=== PATIENT | male | born 1985 | race Caucasian/White ===

== ENCOUNTER 2016-09-07 22:46 | Emergency (ER) | payer MEDICAID ==
[2016-09-07 23:00] VITALS: BP 124/93; PULSE 88; RESP 16; TEMP 98.4; O2SAT 98
[2016-09-07] MEDS ORDERED: Oxycodone/Acetaminophen 5/325 mg Tab PO STA (23:46)
--- NOTE | 2016-09-07 23:48 | C.PDOC ---
History Of Present Illness 31 yo male come in for evaluation of Left lower toothache developed few hours ago " after broke my tooth while eating". Pt denies bleeding, drooling, trismus , facial swelling, CP, SOB, dyspnea, or any other active complaints. Ambulate to ED, appears in pain. Time Seen by Provider: 09/07/16 23:06 Chief Complaint (Nursing): Dental Pain History Per: Patient Past Medical History Reviewed: Historical Data, Nursing Documentation, Vital Signs Vital Signs: Last Vital Signs Temp 98.4 F 09/07/16 22:56 Pulse 88 09/07/16 22:56 Resp 16 09/07/16 22:56 BP 124/93 H 09/07/16 22:56 Pulse Ox 98 09/07/16 23:54 - Medical History PMH: Anxiety, Bipolar Disorder, Depression Surgical History: Appendectomy Family History: States: No Known Family Hx - Social History Hx Tobacco Use: Yes Hx Alcohol Use: Yes Hx Substance Use: No - Immunization History Hx Tetanus Toxoid Vaccination: No Hx Influenza Vaccination: No Hx Pneumococcal Vaccination: No Review Of Systems Except As Marked, All Systems Reviewed And Found Negative. Constitutional: Negative for: Fever, Chills ENT: Positive for: Mouth Pain. Negative for: Ear Discharge, Nose Discharge, Mouth Swelling, Throat Pain, Throat Swelling Cardiovascular: Negative for: Chest Pain, Palpitations, Edema, Light Headedness Respiratory: Negative for: Cough, Shortness of Breath, Wheezing Skin: Negative for: Rash Neurological: Negative for: Weakness, Headache, Dizziness Physical Exam - Physical Exam Appears: Well, Non-toxic, No Acute Distress Skin: Normal Color, Warm, No Rash Eye(s): bilateral: PERRL Nose: Normal Oral Mucosa: Moist, No Drooling, No Trismus Tongue: Normal Appearing Teeth: Caries (Left lower canine fractured crown, gingival edema or erythema, no evidence of tooth abscess. no facial edema.) Gingiva: Normal Appearing, No Erythema, No Swelling, No Abscess Throat: Normal, No Erythema, No Exudate, No Drooling, Other (Uvula midline, no edema.) Neck: Normal ROM, Trachea Midline, Supple Cardiovascular: Rhythm Regular Respiratory: No Stridor, No Wheezing Extremity: Normal ROM, No Deformity Neurological/Psych: Oriented x3, Normal Speech ED Course And Treatment O2 Sat by Pulse Oximetry: 98 Pulse Ox Interpretation: Normal Progress Note: On re-eavl, pt is afebrile, hemodynamicaly stable. Non-toxic. Tolerate PO well in ED. ENT: exam c/w Left lower toothache, no evidence of tooth abscess. uvula midline, no edema, no trismus or drooling. Lungs: CTA B/L, BS equal B/L. Pt advised and ref. to f/u with Dentist in 2 days for re-eval. Disposition Counseled Patient/Family Regarding: Diagnosis, Need For Followup, Rx Given - Disposition Referrals: [facility] [Provider Group] [facility] [Provider Group] Disposition: HOME/ ROUTINE Disposition Time: 23:46 Condition: STABLE Additional Instructions: Warm salty water tooth soaks Take pain medication as prescribed as need for pain Follow up with Dentist ni 2-3 days for re-evaluation. Return to ED if any worsening or new changes. Prescriptions: traMADol [Ultram] 50 mg PO TID #7 tab Instructions: Toothache (ED) - Clinical Impression Clinical Impression: Toothache
[2016-09-07] MEDS ORDERED: Oxycodone/Acetaminophen 5/325 mg Tab ONE (23:49)
== END 2016-09-08 00:03 | disposition home or self-care (01) ==
LOC: C.ER 22:46
DX: K08.89 Other specified disorders of teeth and supporting structures (principal)

== ENCOUNTER 2018-01-16 13:10 | Emergency (ER) | payer SELFPAY ==
[2018-01-16 13:10] VITALS: BMI 27.8
[2018-01-16 13:46] VITALS: BP 117/72; PULSE 69; RESP 18; TEMP 98.5; O2SAT 98
--- NOTE | 2018-01-16 14:02 | C.PDOC ---
History Of Present Illness 32-year-old male presents to the ED requesting evaluation of a bump near his chest, noticed today. When asked to point to the affected area, patient points to sternum. Otherwise he denies any chest pain, SOB, abdominal pain, or other complaints. Time Seen by Provider: 01/16/18 13:47 Chief Complaint (Nursing): Abnormal Skin Integrity History Per: Patient History/Exam Limitations: no limitations Onset/Duration Of Symptoms: Days Current Symptoms Are (Timing): Still Present Past Medical History Reviewed: Historical Data, Nursing Documentation, Vital Signs Vital Signs: Last Vital Signs Temp 98.5 F 01/16/18 13:40 Pulse 69 01/16/18 13:40 Resp 18 01/16/18 13:40 BP 117/72 01/16/18 13:40 Pulse Ox 98 01/16/18 14:13 - Medical History PMH: Anxiety, Bipolar Disorder, Depression Surgical History: Appendectomy Family History: States: Unknown Family Hx - Social History Hx Tobacco Use: Yes Hx Alcohol Use: No Hx Substance Use: No - Immunization History Hx Tetanus Toxoid Vaccination: No Hx Influenza Vaccination: No Hx Pneumococcal Vaccination: No Review Of Systems Constitutional: Negative for: Fever Eyes: Negative for: Vision Change Cardiovascular: Negative for: Chest Pain Respiratory: Negative for: Shortness of Breath Gastrointestinal: Negative for: Vomiting Skin: Positive for: Other (palpable "bump" near lower central chest) Neurological: Negative for: Weakness, Numbness Physical Exam - Physical Exam Appears: Well, Non-toxic, No Acute Distress Skin: Warm, Dry, No Rash Head: Atraumatic, Normacephalic Eye(s): bilateral: Normal Inspection Oral Mucosa: Moist Neck: Normal ROM Chest: Symmetrical (with no swelling), No Tenderness (to the sternum or ribs), No Ecchymosis Cardiovascular: Rhythm Regular, No Murmur Respiratory: Normal Breath Sounds, No Rales, No Rhonchi, No Wheezing Extremity: Bilateral: Atraumatic, Normal Color And Temperature, Normal ROM Neurological/Psych: Oriented x3, Normal Speech ED Course And Treatment O2 Sat by Pulse Oximetry: 98 (RA) Pulse Ox Interpretation: Normal Medical Decision Making Medical Decision Making: Impression: Normal exam Plan: Explained to patient that area of concern is his xiphoid process, which is part of the normal human anatomy. Reassured patient that exam findings are normal, and there is no further need for ED intervention. Patient is stable for discharge home. Disposition Counseled Patient/Family Regarding: Diagnosis, Need For Followup - Disposition Disposition: HOME/ ROUTINE Disposition Time: 13:59 Condition: STABLE Additional Instructions: Your chest wall anatomy was normal Forms: General Discharge Instructions - POA Present On Arrival: None - Clinical Impression Clinical Impression: Normal exam - PA / UNDERGRADUATE INTERNSHIP / Resident Statement MD/DO has reviewed & agrees with the documentation as recorded. - Scribe Statement The provider has reviewed the documentation as recorded by the Scribe (Georgette Ley) All medical record entries made by the Scribe were at my direction and personally dictated by me. I have reviewed the chart and agree that the record accurately reflects my personal performance of the history, physical exam, medical decision making, and the department course for this patient. I have also personally directed, reviewed, and agree with the discharge instructions and disposition.
== END 2018-01-16 14:22 | disposition home or self-care (01) ==
LOC: C.ER 13:10
DX: Z00.00 Encounter for general adult medical examination without abnormal findings (principal); Z72.0 Tobacco use

== ENCOUNTER 2018-06-07 18:02 | Emergency (ER) | payer SELFPAY ==
[2018-06-07 18:03] VITALS: BMI 27.8
[2018-06-07 18:37] VITALS: BP 106/46; PULSE 92; TEMP 99.4; O2SAT 98
--- NOTE | 2018-06-07 19:49 | C.PDOC ---
History Of Present Illness 33 year old male presents to the emergency department with complaints of itching to the bilateral toes for the last five days. Patient reports pain to the left foot in the 5th toe area, worse with wearing shoes and walking. Patient states that he has been using an antifungal cream with minimal relief. Patient denies trauma, weakness, and numbness. Time Seen by Provider: 06/07/18 19:17 Chief Complaint (Nursing): Lower Extremity Problem/Injury History Per: Patient History/Exam Limitations: no limitations Onset/Duration Of Symptoms: Days (5) Current Symptoms Are (Timing): Still Present Past Medical History Reviewed: Historical Data, Nursing Documentation, Vital Signs Vital Signs: Last Vital Signs Temp 99.4 F 06/07/18 18:29 Pulse 92 H 06/07/18 18:29 Resp 18 06/07/18 18:29 BP 106/46 L 06/07/18 18:29 Pulse Ox 98 06/07/18 18:29 - Medical History PMH: Anxiety, Bipolar Disorder, Depression Surgical History: Appendectomy Family History: States: Unknown Family Hx - Social History Hx Tobacco Use: Yes Hx Alcohol Use: No Hx Substance Use: No - Immunization History Hx Tetanus Toxoid Vaccination: No Hx Influenza Vaccination: No Hx Pneumococcal Vaccination: No Review Of Systems Except As Marked, All Systems Reviewed And Found Negative. Constitutional: Negative for: Fever, Chills Gastrointestinal: Negative for: Nausea, Vomiting, Diarrhea Musculoskeletal: Positive for: Foot Pain Physical Exam - Physical Exam Appears: Non-toxic, No Acute Distress Skin: Warm, Dry, Other (No erythema. (+) minimal maceration between the 3rd, 4th, and 5th toe space of left foot consistent with fungal rash. ) Head: Atraumatic, Normacephalic Neck: Normal, Supple Chest: Symmetrical, No Tenderness Extremity: Normal ROM, Capillary Refill (< 2 seconds), Deformity (callous/bony deformity to the left 5th toe MCP with bony protrusion.), Other (right foot normal appearing) Extremity: Bilateral: Atraumatic Pulses: Left Dorsalis Pedis: Normal, Right Dorsalis Pedis: Normal Neurological/Psych: Oriented x3, Normal Motor, Normal Sensation Gait: Steady ED Course And Treatment O2 Sat by Pulse Oximetry: 98 (RA) Pulse Ox Interpretation: Normal Progress Note: Patient instructed to follow-up with Podiatry. Disposition Counseled Patient/Family Regarding: Diagnosis, Need For Followup, Rx Given - Disposition Referrals: [facility] [Outside] Podiatry Clinic [Outside] Disposition: HOME/ ROUTINE Disposition Time: 19:47 Condition: STABLE Additional Instructions: Please follow up with Podiatry Wear comfortable wide front shoes Elevate leg Continue antifungal powder Take tylenol or advil for pain Return if any concerns Instructions: Corns and Calluses, Athlete's Foot (DC) Forms: [employer] (Belgian) - Clinical Impression Clinical Impression: Callus of foot, Tinea pedis of left foot - PA / HIDE OR SKIN BUFFER / Resident Statement MD/DO has reviewed & agrees with the documentation as recorded. - Scribe Statement The provider has reviewed the documentation as recorded by the Scribe (Mat Marshall) All medical record entries made by the Scribe were at my direction and personally dictated by me. I have reviewed the chart and agree that the record accurately reflects my personal performance of the history, physical exam, medical decision making, and the department course for this patient. I have also personally directed, reviewed, and agree with the discharge instructions and disposition.
[2018-06-07 20:07] VITALS: RESP 20
== END 2018-06-07 20:06 | disposition home or self-care (01) ==
LOC: C.ER 18:02
DX: B35.3 Tinea pedis (principal); L84 Corns and callosities; Z72.0 Tobacco use; F31.9 Bipolar disorder, unspecified

== ENCOUNTER 2018-06-17 11:56 | Emergency (ER) | payer OTHER ==
[2018-06-17 11:59] VITALS: BMI 25.0
[2018-06-17 12:01] VITALS: O2SAT 99
--- NOTE | 2018-06-17 13:00 | C.PDOC ---
History Of Present Illness 33 year old male, whose past surgical history includes appendectomy, presents to the ED for evaluation of right elbow, right thumb and lower back pain after he sustained a fall yesterday. Patient states he was walking down steps when he fell forward, down around ten steps. He denies head injury, loss of consciousness, urinary/bowel incontinence, extremity numbness/weakness. Time Seen by Provider: 06/17/18 12:03 Chief Complaint (Nursing): Upper Extremity Problem/Injury History Per: Patient History/Exam Limitations: no limitations Onset/Duration Of Symptoms: Hrs Current Symptoms Are (Timing): Still Present Quality: "Pain" Additional History Per: Patient Past Medical History Reviewed: Historical Data, Nursing Documentation, Vital Signs Vital Signs: Last Vital Signs Temp 98.5 F 06/17/18 11:59 Pulse 60 06/17/18 11:59 Resp 18 06/17/18 11:59 BP 112/64 06/17/18 11:59 Pulse Ox 99 06/17/18 11:59 - Medical History PMH: Anxiety, Bipolar Disorder, Depression Surgical History: Appendectomy Family History: States: Unknown Family Hx - Social History Hx Tobacco Use: Yes Hx Alcohol Use: No Hx Substance Use: No - Immunization History Hx Tetanus Toxoid Vaccination: No Hx Influenza Vaccination: No Hx Pneumococcal Vaccination: No Review Of Systems Genitourinary: Negative for: Incontinence Musculoskeletal: Positive for: Back Pain (lower), Other (right elbow and right thumb pain ) Neurological: Negative for: Weakness, Numbness, Other (head injury, LOC ) Physical Exam - Physical Exam Appears: Non-toxic, No Acute Distress Skin: Normal Color, Warm, Dry Head: Atraumatic, Normacephalic Eye(s): bilateral: Normal Inspection Oral Mucosa: Moist Neck: Normal ROM, No Midline Cervical Tenderness, Supple Chest: Symmetrical, No Deformity, No Tenderness Cardiovascular: Rhythm Regular, No Murmur Respiratory: Normal Breath Sounds, No Rales, No Rhonchi, No Wheezing Gastrointestinal/Abdominal: Soft, No Tenderness, No Guarding, No Rebound Back: No Vertebral Tenderness, No Paraspinal Tenderness Extremity: Normal ROM (right elbow and right thumb ), Tenderness (to left buttock and medial aspect of right elbow, and right thumb on palpation ), Capillary Refill (less than 2 seconds ), No Swelling, No Other (erythema ) Pulses: Left Radial: Normal, Right Radial: Normal Neurological/Psych: Oriented x3, Normal Speech, Normal Cognition, Normal Motor, Normal Sensation Gait: Steady ED Course And Treatment O2 Sat by Pulse Oximetry: 99 (on RA) Pulse Ox Interpretation: Normal Medical Decision Making Medical Decision Making: Impression: rule out elbow and thumb fracture Plan: * right elbow XR * right thumb XR * LS Spine XR * Motrin PO * reassess and disposition Progress: Right elbow XR, Right thumb XR, LS Spine XR ordered and reviewed. Motrin PO given. Disposition - Disposition Referrals: Patricia Do MD [Staff Provider] - Disposition: HOME/ ROUTINE Disposition Time: 13:55 Condition: GOOD Additional Instructions: Please call for an appointment as soon as possible. Take motrin for pain as directed. Prescriptions: Ibuprofen [Motrin] 600 mg PO Q6 #20 tab Instructions: Finger Fracture, Contusion (DC) Forms: [employer] (Frisian), Work Excuse - Clinical Impression Clinical Impression: Finger fracture, right, Contusion - Scribe Statement The provider has reviewed the documentation as recorded by the Scribe (Trudy Almeida) Provider Attestation: All medical record entries made by the Scribe were at my direction and personally dictated by me. I have reviewed the chart and agree that the record accurately reflects my personal performance of the history, physical exam, medical decision making, and the department course for this patient. I have also personally directed, reviewed, and agree with the discharge instructions and disposition.
--- NOTE | 2018-06-17 13:14 | RAD ---
Date of service: 06/17/2018 PROCEDURE: Radiographs of the Lumbar Spine. HISTORY: s/p fall COMPARISON: None available. FINDINGS: BONES: Osseous demineralization. Alignment appears satisfactory. No listhesis. No acute displaced fracture identified. DISC SPACES: Unremarkable. OTHER FINDINGS: Surgical clips project over the right pelvis. IMPRESSION: No acute displaced fracture or subluxation identified.
--- NOTE | 2018-06-17 13:16 | RAD ---
PROCEDURE: Radiographs of the right elbow. HISTORY: s/p fall r/o Fx COMPARISON: None available. FINDINGS: BONES: No acute displaced fracture. JOINTS: No dislocation. SOFT TISSUES: Unremarkable. No evidence of radiopaque foreign body. JOINT EFFUSION: No significant joint effusion. OTHER FINDINGS: None IMPRESSION: No acute displaced fracture, dislocation, or significant joint effusion identified. If symptoms persist, or if there is continued clinical concern, x-ray follow-up in 7-10 days should be considered.
--- NOTE | 2018-06-17 13:19 | RAD ---
Date of service: 06/17/2018 PROCEDURE: Right Thumb radiographs. HISTORY: s/p fall r/o Fx COMPARISON: None available. TECHNIQUE: AP radiograph of the right hand, as well as spot oblique and lateral images of thumb were obtained. FINDINGS: RIGHT THUMB: Faint linear lucency at the 1st digit distal metacarpal seen on a single view (series 2, image 1); nondisplaced fracture not excluded. Chronic fracture deformity of the 5th metacarpal. Remainder of the right hand (as seen on the AP view) grossly unremarkable. JOINTS: No dislocation. SOFT TISSUES: Soft tissue swelling. No evidence of radiopaque foreign body OTHER FINDINGS: None. IMPRESSION: Soft tissue swelling. Faint linear lucency at the 1st digit distal metacarpal seen on a single view; nondisplaced fracture not excluded. Correlate clinically. Chronic fracture deformity of the 5th metacarpal.
[2018-06-17 13:56] VITALS: BP 139/84; PULSE 84; RESP 20; TEMP 97.9
== END 2018-06-17 13:56 | disposition home or self-care (01) ==
LOC: C.ER 11:56
DX: S62.201A Unspecified fracture of first metacarpal bone, right hand, initial encounter for closed fracture (principal); T14.8XXA Other injury of unspecified body region, initial encounter; W10.9XXA Fall (on) (from) unspecified stairs and steps, initial encounter

== ENCOUNTER 2018-06-30 14:16 | Emergency (ER) | payer SELFPAY ==
[2018-06-30 14:16] VITALS: BMI 25.0
[2018-06-30] MEDS ORDERED: Sodium Chloride 0.9% 1,000 ML IV ONE (15:27)
[2018-06-30 15:49] LABS: URINE BILIRUBIN NEGATIVE (NEGATIVE); URINE BLOOD NEGATIVE (NEGATIVE); URINE CLARITY Clear (Clear); URINE COLOR Yellow (YELLOW); URINE GLUCOSE (UA) NORMAL (Normal); URINE LEUKOCYTE ESTERASE NEG Leu/uL (Negative); URINE PROTEIN NEGATIVE (NEGATIVE); URINE UROBILINOGEN NORMAL mg/dL (0.2-1.0)
--- NOTE | 2018-06-30 15:55 | C.PDOC ---
History Of Present Illness Patient is a 33 year old male w/PMhx of kidney stone, who presents to the ED for evaluation of diffuse suprapubic discomfort for the past 2/3 days with intermittent right lower back pain and urinary frequency. Patient denies high fever, chills, abdominal pain, N/V, hematuria, penile discharge, testicular swelling or pain. Ambulatory, not in any apparent distress. Time Seen by Provider: 06/30/18 14:40 Chief Complaint (Nursing): Male Genitourinary History Per: Patient History/Exam Limitations: no limitations Onset/Duration Of Symptoms: Days Current Symptoms Are (Timing): Still Present Quality Of Discomfort: Other (suprapubic discomfort ) Associated Symptoms: Back Pain (intermittent right lower back ), Urinary Symptoms (frequency ). denies: Fever, Chills Recent travel outside of the [place]: No Additional History Per: Patient Past Medical History Reviewed: Historical Data, Nursing Documentation, Vital Signs Vital Signs: Last Vital Signs Temp 98.1 F 06/30/18 14:31 Pulse 70 06/30/18 14:31 Resp 18 06/30/18 14:31 BP 130/62 06/30/18 14:31 Pulse Ox 98 06/30/18 14:31 - Medical History PMH: Anxiety, Bipolar Disorder, Depression, Kidney Stones Surgical History: Appendectomy (22 yrs old) Family History: States: Unknown Family Hx - Social History Hx Tobacco Use: Yes Hx Alcohol Use: No Hx Substance Use: No - Immunization History Hx Tetanus Toxoid Vaccination: No Hx Influenza Vaccination: No Hx Pneumococcal Vaccination: No Review Of Systems Except As Marked, All Systems Reviewed And Found Negative. Constitutional: Negative for: Fever, Chills Gastrointestinal: Positive for: Other (suprapubic discomfort ). Negative for: Abdominal Pain Genitourinary: Positive for: Frequency. Negative for: Hematuria Musculoskeletal: Positive for: Back Pain (intermittent right lower back pain ) Physical Exam - Physical Exam Appears: Well, Non-toxic, No Acute Distress Skin: Normal Color, Warm, No Rash, No Ecchymosis Neck: Supple Cardiovascular: Rhythm Regular, No Murmur Respiratory: No Accessory Muscle Use, No Rales, No Rhonchi, No Wheezing Gastrointestinal/Abdominal: Soft, Tenderness (mild suprapubic ), No Distention, No Guarding, No Rebound Back: No CVA Tenderness Male Genital: Other (refused) Extremity: Normal ROM Neurological/Psych: Oriented x3, Normal Speech ED Course And Treatment - Laboratory Results Lab Results: Urine Color Yellow (YELLOW) 06/30/18 15:40 Urine Clarity Clear (Clear) 06/30/18 15:40 Urine pH 5.0 (5.0-8.0) 06/30/18 15:40 Ur Specific [place] 1.012 (1.003-1.030) 06/30/18 15:40 Urine Protein Negative mg/dL (NEGATIVE) 06/30/18 15:40 Urine Glucose (UA) Normal mg/dL (Normal) 06/30/18 15:40 Urine Ketones Negative mg/dL (NEGATIVE) 06/30/18 15:40 Urine Blood Negative (NEGATIVE) 06/30/18 15:40 Urine Nitrate Negative (NEGATIVE) 06/30/18 15:40 Urine Bilirubin Negative (NEGATIVE) 06/30/18 15:40 Urine Urobilinogen Normal mg/dL (0.2-1.0) 06/30/18 15:40 Ur Leukocyte Esterase Neg Shaheen/uL (Negative) 06/30/18 15:40 Urine WBC (Auto) 2 /hpf (0-5) 06/30/18 15:40 O2 Sat by Pulse Oximetry: 98 (on RA) Pulse Ox Interpretation: Normal - CT Scan/US CAT Other Rad Studies (CT/US): Read By Radiologist, Radiology Report Reviewed CT/US Interpretation: IMPRESSION: 1. 2 mm nonobstructing stone in the right interpolar region. 2 mm stone in the right urinary bladder distal to the right UV junction. No hydronephrosis, ureteral dilatation or obstructive uropathy. 2. Mildly dilated fluid-filled proximal small bowel loops with fecalization of small bowel contents. Decompressed mid and distal small bowel loops and moderate amount of stool in the colon. Findings may represent chronic stasis or ileus. Progress Note: Urinalysis was intially review and appears normal. renal CT ordered. On re-eval, pt is afebrile, hemodynamically stable, non-toxic. Pt remained asymptomatic in ED. Tolerate PO well in ED. Abd: benign, (-) guarding, (-) rebound, (-) localized tenderness. back: (-) CVA tenderness. Neurologicaly intact. renal CT review and c/w 2mm Right kidney and 2 mm bladder stone, non- obstructing, no evidence of hydro. UA- no evidence of UTI. results discussed with pt. pt advised on course of ds. ref. to f/u with Urology in 2-3 days for re-eavl. return to Ed if any worsening or new chnages. Disposition Counseled Patient/Family Regarding: Studies Performed, Diagnosis, Need For Followup, Rx Given - Disposition Referrals: [facility] [Outside] Bala Ames Jr., MD [Staff Provider] - Disposition: HOME/ ROUTINE Disposition Time: 17:00 Condition: STABLE Additional Instructions: Encourage fluids take medication as prescribed follow up with urology in 2-3 days for re-evaluation. Return to ED if nay worsening or new changes Prescriptions: Tamsulosin [Flomax] 0.4 mg PO DAILY #20 cap traMADol [Ultram] 50 mg PO TID #7 tab Instructions: Kidney Stones (DC) Forms: [employer] (Portuguese) - Clinical Impression Clinical Impression: Nephrolithiasis - PA / OUTBOUND SALES CONSULTANT / Resident Statement MD/DO has examined the patient and agrees with the treatment plan. - Scribe Statement The provider has reviewed the documentation as recorded by the Yanickibamanda Pena All medical record entries made by the Yanickibamanda were at my direction and personally dictated by me. I have reviewed the chart and agree that the record accurately reflects my personal performance of the history, physical exam, medical decision making, and the department course for this patient. I have also personally directed, reviewed, and agree with the discharge instructions and disposition.
--- NOTE | 2018-06-30 17:28 | CT ---
Date of service: 06/30/2018 PROCEDURE: CT Abdomen and Pelvis without intravenous contrast HISTORY: Right flank pain COMPARISON: None. TECHNIQUE: CT scan of the abdomen and pelvis was performed without administration of intravenous contrast. Oral contrast was not administered. Coronal and sagittal reformatted images were obtained. Radiation dose: Total exam DLP = 343.02 mGy-cm. This CT exam was performed using one or more of the following dose reduction techniques: Automated exposure control, adjustment of the mA and/or kV according to patient size, and/or use of iterative reconstruction technique. FINDINGS: LOWER THORAX: The visualized lungs are clear. LIVER: Normal in size. No gross lesion or ductal dilatation. GALLBLADDER AND BILE DUCTS: Well distended. No calcified gallstones. No common bile duct dilatation. PANCREAS: Normal in size. No gross lesion or ductal dilatation. SPLEEN: Normal in size. ADRENALS: Normal in size. No discrete nodule. KIDNEYS AND URETERS: Both kidneys are normal in size. 2 mm nonobstructing stone in the right interpolar region no hydronephrosis. VASCULATURE: Normal in caliber. No aortic aneurysm. No aortic atherosclerotic calcification or mural plaque present. BOWEL: Evaluation of the bowel is limited in the absence of oral contrast. There is moderate dilatation of fluid-filled proximal small bowel loops with fecalization of small bowel contents. The mid and distal small bowel loops are normal in caliber. The ileocecal junction is normal. There is moderate amount of stool in the colon. APPENDIX: Surgically absent. PERITONEUM: No free fluid. No free air. LYMPH NODES: No enlarged lymph nodes. BLADDER: Well distended and normal in appearance. There is a 2 mm stone in the urinary bladder distal to the right UV junction. REPRODUCTIVE: The prostate gland is normal in size. BONES: No acute fracture. Within normal limits for the patient's age. OTHER FINDINGS: Subcentimeter bilateral inguinal lymph nodes are likely reactive. IMPRESSION: 1. 2 mm nonobstructing stone in the right interpolar region. 2 mm stone in the right urinary bladder distal to the right UV junction. No hydronephrosis, ureteral dilatation or obstructive uropathy. 2. Mildly dilated fluid-filled proximal small bowel loops with fecalization of small bowel contents. Decompressed mid and distal small bowel loops and moderate amount of stool in the colon. Findings may represent chronic stasis or ileus.
[2018-06-30 17:57] VITALS: BP 117/81; PULSE 61; RESP 17; TEMP 98.2
[2018-06-30 18:36] VITALS: O2SAT 98
== END 2018-06-30 17:54 | disposition home or self-care (01) ==
LOC: C.ER 14:16
DX: N20.0 Calculus of kidney (principal); Z87.442 Personal history of urinary calculi